=== PATIENT | female | born 1945 | race Caucasian/White ===

== ENCOUNTER → 2017-06-04 | Outpatient (CLI) | payer MEDICARE, OTHER ==
[~2017-06-04] MED LIST: ALBU90OI6 INH; ALBUIS IH; AZIT250 PO; CALCA500CH PO; FISH1000 PO; GRAPE SEED EXTRACT PO; MAGCHL64ER PO; METO50 PO; MULTIVITAMIN PO; POLY500 PO; PRED20 PO; TRIHYD253A PO; [UNRECOGNIZED DRUG - OTHER] BOTHEYES
== END | disposition home or self-care (01) ==
LOC: LAB SHORT 08:51 → PLD 08:51
DX: D22.71 Melanocytic nevi of right lower limb, including hip (principal)
CPT/HCPCS: 88305

== ENCOUNTER 2019-03-17 11:13 | Day surgery (SDC) | payer MEDICARE, OTHER ==
[~2019-03-17] VITALS: Ht 162.6 cm; Wt 73.6 kg
== END 2019-03-17 13:10 | disposition home or self-care (01) ==
LOC: ORSCSDS 11:13
PROVIDERS: Internal Medicine Gastroenterology
PROC: 0DB68ZX Excision of Stomach, Via Natural or Artificial Opening Endoscopic, Diagnostic (ICD-10-PCS; principal; 2019-03-17 12:30)
DX: Z87.19 Personal history of other diseases of the digestive system (principal); K20.9 Esophagitis, unspecified; K46.9 Unspecified abdominal hernia without obstruction or gangrene; I10 Essential (primary) hypertension; K29.70 Gastritis, unspecified, without bleeding; J45.909 Unspecified asthma, uncomplicated; Z79.899 Other long term (current) drug therapy
CPT/HCPCS: 88305; 88342; J2704; J7120

== ENCOUNTER 2020-05-25 10:25 | Day surgery (SDC) | payer MEDICARE, OTHER ==
[~2020-05-25] VITALS: Ht 160 cm; Wt 75.9 kg
[~2020-05-25 10:25] MED LIST changes: +CALCIUM 600 MG1 EAC8 PO; +LIPOFLAVONOID PO; +MULTI-VITAMIN1 EAC2 PO; +OMEGA-3 FISH O1 EAC6 PO; +Ranitidine HCl150 M1 PO; +VIT1CAPS12 PO
--- NOTE | 2020-05-25 11:11 | NUR ---
05/25/20 1111 Chrystal Russo 1ST I.V. ATTEMPT IN RIGHT HAND BY RISSA 2ND I.V. ATTEMPT IN RIGHT HAND BY ELIAN 3RD I.V. ATTEMT IN RIGHT WRIST BY ELIAN
== END 2020-05-25 12:15 | disposition home or self-care (01) ==
LOC: ORSCSDS 10:25
PROVIDERS: Internal Medicine Gastroenterology
PROC: 0DB68ZX Excision of Stomach, Via Natural or Artificial Opening Endoscopic, Diagnostic (ICD-10-PCS; principal; 2020-05-25 11:45)
DX: Z85.028 Personal history of other malignant neoplasm of stomach (principal); K29.70 Gastritis, unspecified, without bleeding; K44.9 Diaphragmatic hernia without obstruction or gangrene; E78.5 Hyperlipidemia, unspecified; K21.9 Gastro-esophageal reflux disease without esophagitis; J45.909 Unspecified asthma, uncomplicated; I10 Essential (primary) hypertension; Z79.899 Other long term (current) drug therapy
CPT/HCPCS: 88305; 88341; 88342; J2704; J7120

== ENCOUNTER → 2021-03-13 | Outpatient (CLI) | payer MEDICARE, OTHER | END | disposition home or self-care (01) | LOC: LAB SHORT 11:19 | DX: D48.5 Neoplasm of uncertain behavior of skin (principal) | CPT/HCPCS: 88305 ==